=== PATIENT | male | born 1975 | race Caucasian/White ===

== ENCOUNTER 2022-05-09 10:46 | Emergency (ER) | payer BC, SELFPAY ==
--- NOTE | 2022-05-09 10:51 | ED.URI ---
HPI - URI/Sore Throat General Chief Complaint: Headache Stated Complaint: Dizziness,Headache Time Seen by Provider: 05/09/22 10:57 Source: patient, RN notes reviewed and old records reviewed Mode of arrival: ambulatory Limitations: no limitations History of Present Illness HPI Narrative: 47-year-old male presents to the [facility] with dizziness and feeling very off balance with an occasional headache. Patient states it started Sunday or Sunday. Denies any nausea or vomiting. Denies any vision changes. denies any abdominal pain or chest pain. Reports he does have a history of migraines but it does not feel like a normal migraine however he took his migraine medication as well as some Aleve and started his prednisone burst Pac. Has states he has been under a lot of stress lately. Denies any history of hypertension denies any history of cardiac issues, blood sugar issues Reported that years ago when he was having bad migraines he had an MRI which showed a cyst on his brain. Patient also reports he has had increased stress with a relative Recently passing away of brain cancer. Onset (ago): day(s) Related Data Home Medications Medication Instructions Recorded Confirmed azathioprine 50 mg tablet 50 mg DIRECTED 05/09/22 05/09/22 mesalamine 1.2 gram tablet,delayed 1.2 g PO DIRECTED 05/09/22 05/09/22 release omeprazole 40 mg capsule,delayed 40 mg DIRECTED 05/09/22 05/09/22 release tamsulosin 0.4 mg capsule 0.4 mg PO DIRECTED 05/09/22 05/09/22 Allergies Allergy/AdvReac Type Severity Reaction Status Date / Time No Known Allergies Allergy Mild Unverified 04/11/13 09:19 Review of Systems Review of Systems: All systems reviewed & are unremarkable except as noted in HPI and below Constitutional: Constitutional: Reports no additional constitutional complaints Eyes: Eyes: Reports no additional eye complaints ENT: Reports system reviewed and no additional complaints, except as documented Cardiovascular: Cardiovascular: Reports no additional cardiovascular complaints, Denies chest pain and Denies dyspnea Respiratory: Respiratory: Reports no additional respiratory complaints, Denies chest congestion, Denies cough and Denies dyspnea Gastrointestinal: Gastrointestinal: Reports no additional gastrointestinal complaints, Denies abdominal pain, Denies nausea and Denies vomiting Musculoskeletal: Musculoskeletal: Reports no additional musculoskeletal complaints Integumentary/Breasts: Skin/Breast: Reports system reviewed and no additional complaints, except as docu Neurologic: Reports as per HPI, Denies Abnormal speech present, Denies abnormal gait, Reports dizziness, Denies syncope, Reports headache(s), Denies numbness and Reports weakness Psychiatric: Psychiatric: Reports no additional psychiatric complaints Allergic/Immunologic: Allergic/Immunologic: Reports no additional allergic/immunologic complaints PMFSH Past Medical History Medical History (Updated 05/09/22 @ 11:34 by Saida Orlando APRN) Crohn disease H/O gastroesophageal reflux (GERD) Migraine Surgical History Surgical History (Updated 05/09/22 @ 11:28 by Saida Orlando APRN) H/O adenoidectomy Social History Social History (Updated 05/09/22 @ 11:28 by Saida Orlando APRN) Living arrangements: with family Gender identity (if verbalized by the patient): Male Comments At the time of my signature, I reviewed and agree with the nursing past medical, surgical, social, and family history. There is no relevant family history pertinent to the patient complaint. Exam Const: General: cooperative, healthy appearing, comfortable, no acute distress, well developed, alert and well nourished Nutritional Appearance: well nourished Orientation/consciousness: patient oriented x3 Limitations: no limitations HENMT: Head: normal to inspection Ears: hearing grossly normal bilaterally and external ears normal Face/Nose/Sinus: Normal ex
[2022-05-09 10:56] VITALS: BP 149/108; PULSE 58; RESP 16; TEMP 36; O2SAT 99
[2022-05-09 11:10] VITALS: BP 151/101; BP 152/105; BP 153/111; PULSE 103; PULSE 52; PULSE 56
[2022-05-09 11:17] VITALS: BP 149/108; PULSE 58; RESP 16; TEMP 36; O2SAT 99
[2022-05-09 11:18] LABS: Glucose Point of Care 103 mg/dl (65-105)
--- NOTE | 2022-05-09 11:18 | ECG_ITS ---
Measurements Intervals [place] Rate: 56 P: 13 GA: 165 QRS: -1 QRSD: 90 T: 14 QT: 397 QTc: 385 Interpretive Statements SINUS BRADYCARDIA NO PREVIOUS ECG AVAILABLE FOR COMPARISON Electronically Signed On 05-09-2022 14:53:56 [employer] by Eric Grossman M.D.
== END 2022-05-09 11:25 | disposition short-term general hospital (02) ==
PROVIDERS: Emergency Provider Nurse Practitioner; PCP Nurse Practitioner Family
DX: R42 Dizziness and giddiness (principal); K50.90 Crohn's disease, unspecified, without complications; K21.9 Gastro-esophageal reflux disease without esophagitis
CPT/HCPCS: 82948; 93005; 99213; G0463

== ENCOUNTER 2022-05-09 11:54 | Emergency (ER) | payer BC, SELFPAY ==
[2022-05-09] VITALS (14 sets, daily range): BP systolic 107–158; BP diastolic 56–119; PULSE 52–74; RESP 12–23; TEMP 36.2; O2SAT 96–100
--- NOTE | ~2022-05-09 | CT_ITS ---
Non-contrast Head CT History: Headache, vertigo Technique: Axial non-contrast imaging of the brain was performed. Dose reduction technique was used on this scan by utilizing automated exposure control and iterative reconstruction technique. The dose -length product (DLP) was 605.33 mGy-cm. Findings: There is no evidence of intracranial hemorrhage, mass lesion, or acute infarct. Brain par enchyma appears normal. The ventricles and subarachnoid spaces are normal in size. The calvarium ap pears normal. The visualized paranasal sinuses and mastoid air cells are clear. Impression: No significant abnormality seen. Reviewed, dictated and finalized at location . SOFTWARE ENGINEER Impression: No significant abnormality seen.
--- NOTE | 2022-05-09 12:18 | ECG_ITS ---
Measurements Intervals [place] Rate: 57 P: 14 OR: 161 QRS: 6 QRSD: 94 T: 19 QT: 408 QTc: 400 Interpretive Statements SINUS BRADYCARDIA COMPARED TO ECG 05/09/2022 11:10:15 NO SIGNIFICANT CHANGES Electronically Signed On 05-09-2022 14:58:51 [employer] MECH[employer]IC by Eric Grossman M.D.
[2022-05-09 12:40] LABS: Basophils Percent Auto 0.6 % (0.2-1.2); Eosinophils Percent Auto 0.1 % (0-4.4); Hematocrit 43.9 % (42.0-52.0); Hemoglobin 15.3 g/dL (14.0-18.0); Immature Granulocyte Absolute 0.01 K/mm3 (0.00-0.031); Immature Granulocyte Percent A 0.1 % (0-0.5); Lymphocytes Absolute Auto 0.74 K/mm3 (0.9-3.2); Mean Corpuscular HGB Conc 34.9 g/dl (32-36); Mean Corpuscular Hemoglobin 33.3 pg (26-34); Mean Corpuscular Volume 95.4 fl (80-100); Mean Platelet Volume 9.5 fl (7.4-10.4); Monocytes Absolute Auto 0.2 K/mm3 (0.1-0.6); Monocytes Percent Auto 2.7 % (2.6-8.5); Neutrophils Absolute Auto 5.7 K/mm3 (1.3-6.7); Neutrophils Percent Auto 85.5 % (45.5-73.1); Platelet Count Result 247 k/mm3 (150-375); Red Cell Distribution Width 13.4 % (11.5-14.5); White Blood Count 6.7 K/mm3 (4.5-10.0)
--- NOTE | 2022-05-09 12:49 | ED.DIZZY ---
HPI - Dizziness General Chief Complaint: Dizziness Stated Complaint: dizzy/headache Time Seen by Provider: 05/09/22 12:08 History of Present Illness HPI Narrative: Patient is a 47-year-old male with a history of migraines, Crohn's presenting with headache and vertigo. Patient states that for the last 1 to 2 days he has had a sensation of feeling off balance as well as intermittent vertigo. States he has had an intermittent migraine as well. States that he took one ubrelvy and aleve this morning but continues to have intermittent headaches. States that he was told approximately 20 years ago that he has an arachnoid cyst so he is concerned something is wrong with the cyst. He denies fevers, neck pain or stiffness, speech changes, hearing or vision changes, numbness or weakness, chest pain, shortness of breath, abdominal pain, vomiting, diarrhea. Endorses intermittent nausea. Related Data Home Medications Medication Instructions Recorded Confirmed azathioprine 50 mg tablet 50 mg DIRECTED 05/09/22 05/09/22 mesalamine 1.2 gram tablet,delayed 1.2 g PO DIRECTED 05/09/22 05/09/22 release omeprazole 40 mg capsule,delayed 40 mg DIRECTED 05/09/22 05/09/22 release tamsulosin 0.4 mg capsule 0.4 mg PO DIRECTED 05/09/22 05/09/22 Allergies Allergy/AdvReac Type Severity Reaction Status Date / Time No Known Allergies Allergy Mild Unverified 04/11/13 09:19 Review of Systems Review of Systems: All systems reviewed & are unremarkable except as noted in HPI and below PMFSH Past Medical History Medical History Crohn disease H/O gastroesophageal reflux (GERD) Migraine Surgical History Surgical History H/O adenoidectomy Social History Social History Living arrangements: with family Gender identity (if verbalized by the patient): Male Exam Narrative: GENERAL: Well-appearing, well-nourished, and in no acute distress. HEAD: Normocephalic, atraumatic. EYES: PERRLA and EOMI. +several beats of horizontal nystagmus with lateral movements ENT: Nares clear, no rhinorrhea or epistaxis. Mucous membranes moist. NECK: Supple. CHEST: Clear to auscultation. No respiratory distress. HEART: Regular rate and rhythm. No murmur heard. Normal peripheral pulses. ABDOMEN: Soft, nontender, nondistended, normal active bowel sounds. EXTREMITIES: Normal range of motion. No edema. SKIN: Warm, dry, no rash. NEURO: No focal deficits. Alert and oriented x3. No pronator drift, coordination is intact PSYCH: Normal mood and affect. Course Vital Signs Vital signs: Vital Signs Temperature 97.2 F L 05/09/22 12:01 Pulse Rate 61 05/09/22 12:01 Respiratory Rate 16 05/09/22 12:01 Blood Pressure 158/101 H 05/09/22 12:01 Pulse Oximetry 100 05/09/22 12:01 Oxygen Delivery Room Air 05/09/22 12:01 Temperature 97.2 F L 05/09/22 12:01 Pulse Rate 55 L 05/09/22 15:00 Respiratory Rate 18 05/09/22 15:00 Blood Pressure 107/61 05/09/22 15:00 Pulse Oximetry 98 05/09/22 15:00 Oxygen Delivery Room Air 05/09/22 12:24 MDM - Dizziness MDM Narrative Medical decision making narrative: Patient is a 47-year-old male presenting with headache and vertigo. Patient is hypertensive, his vitals are within normal limits. Exam is unremarkable. Neurologically intact. EKG per my interpretation shows sinus bradycardia, normal axis, no ST elevations or depressions. Blood work is unremarkable. CT brain with no acute abnormalities. Patient with resolution of his headache following migraine cocktail. States that he continues to feel slightly off balance. States whenever he rolls over or suddenly changes position he develops an episode of vertigo. Given his normal work-up, reassuring neuro exam, and positional vertigo, I suspect a peripheral cause. Patient
[2022-05-09 12:51] LABS: Alanine Aminotransferase 56 U/L (6-50); Albumin Level 4.7 g/dL (3.5-5.1); Alkaline Phosphatase 62 U/L (38-126); Anion Gap 5 mmol/L (8-16); Aspartate Amino Transferase 50 U/L (17-59); Bilirubin,Total 0.8 mg/dL (0.2-1.3); Blood Urea Nitrogen 13 mg/dL (9-20); Calcium 9.5 mg/dL (8.4-10.2); Carbon Dioxide 27 mmol/L (22-30); Chloride 102 mmol/L (98-107); Estimated CRCL calculation 141 ml/min; Estimated Glomerular Filt Rate > 60; Glucose 107 mg/dL (65-110); Potassium 4.5 mmol/L (3.4-5.0); Sodium 134 mmol/L (137-145)
[2022-05-09] MEDS: SODIUM CHLORIDE 0.9% IV 1,000 ML 999 ML IV CONT (13:12)
[2022-05-09] MEDS: PROCHLORPERAZINE EDISYLATE 10 MG/2 ML VIAL IV PUSH (13:12)
[2022-05-09] MEDS: KETOROLAC 30 MG/ML VIAL (*BKC) IV PUSH (13:13)
[2022-05-09] MEDS: diphenhydrAMINE HCl INJ 50 MG/ML VIAL 25 MG IV PUSH (13:13)
== END 2022-05-09 15:36 | disposition home or self-care (01) ==
PROVIDERS: Emergency Provider Emergency Medicine; PCP Nurse Practitioner Family
DX: G43.909 Migraine, unspecified, not intractable, without status migrainosus (principal); H81.10 Benign paroxysmal vertigo, unspecified ear; K50.90 Crohn's disease, unspecified, without complications; K21.9 Gastro-esophageal reflux disease without esophagitis
CPT/HCPCS: 36415; 70450; 80053; 85025; 93005; 96361; 96374; 96375; 99284; J0780; J1200; J1885; J7030

== ENCOUNTER 2023-06-12 15:11 | Outpatient (CLI) | payer BC, SELFPAY ==
--- NOTE | ~2023-06-12 | MR_ITS ---
EXAMINATION: MR brain IAC wo/w con DATE: 06/12/2023 16:22 INDICATION: Migraine, unspecified, not intractable. TECHNIQUE: Magnetic resonance imaging (MRI) of the brain, brainstem, and internal auditory canals was performed without and with 20 mL MultiHance intravenous contrast. COMPARISON: Head CT 05/09/2022, brain MRI 05/12/2004 FINDINGS: There are a few foci of increased T2-weighted signal intensity in the cerebral white matter , which is normal for the patient's age. There is no intracranial hemorrhage, acute infarction, or ab normal intracranial mass lesion. The ventricles are normal in size. The internal auditory canals, inn er ears, tympanic cavities, and mastoid air cells are normal. There is mild mucosal thickening in the paranasal sinuses. The orbits are normal. IMPRESSION: 1. Normal brain. Reviewed, dictated and finalized at location A. IMPRESSION: 1. Normal brain.
== END 2023-06-12 15:12 ==
PROVIDERS: PCP Nurse Practitioner Family; Visit Provider Otolaryngology
DX: G43.909 Migraine, unspecified, not intractable, without status migrainosus (principal)
CPT/HCPCS: 70553; A9577